=== PATIENT | female | born 1990 | race Caucasian/White ===

== ENCOUNTER 2019-10-06 02:56 | Emergency (ER) | payer MEDICAID ==
[~2019-10-06] VITALS: Ht 180.3 cm; Wt 88.9 kg
[~2019-10-06 02:56] MED LIST: IBUP-1222 PO; OXYC-302 PO
[2019-10-06 02:59] VITALS: BP 119/85
[2019-10-06] MEDS ORDERED: KETOROLAC 30 MG/1 ML ONE (03:17)
[2019-10-06] MEDS ORDERED: KETOROLAC 30 MG/1 ML IM ONE (03:30)
== END 2019-10-06 04:07 | disposition home or self-care (01) ==
LOC: ED 03:50
DX: G89.11 Acute pain due to trauma (principal); M79.645 Pain in left finger(s); F17.200 Nicotine dependence, unspecified, uncomplicated; W01.0XXA Fall on same level from slipping, tripping and stumbling without subsequent striking against object, initial encounter; Y93.89 Activity, other specified; Y92.488 Other paved roadways as the place of occurrence of the external cause; Y99.8 Other external cause status
CPT/HCPCS: 73130; 96372; 99283; J1885